=== PATIENT | female | born 1975 | race Caucasian/White ===

== ENCOUNTER 2023-06-28 14:16 | Outpatient (CLI) | payer BC, SELFPAY | END 2023-06-28 14:17 | disposition home or self-care (01) | PROVIDERS: PCP Physician Assistant Medical; Visit Provider Registered Nurse | DX: R10.2 Pelvic and perineal pain (principal) | CPT/HCPCS: 87086; 87186 ==

== ENCOUNTER 2024-01-18 11:21 | Outpatient (CLI) | payer BC, SELFPAY ==
--- NOTE | 2024-01-18 11:30 | MM_ITS ---
Patient: ROSEMARIE GRAY Facility:?[facility] Patient ID:?[id number] Site Patient ID:?[id number]. Site :?[id number] Study:?XRay-Breast Bilateral 3D W/CAD-01/18/2024 11:42:07 AM Ordering Physician:Sri December Final Report: BILATERAL SCREENING MAMMOGRAM WITH COMPUTER-AIDED DETECTION AND TOMOSYNTHESIS TECHNIQUE: CC and MLO views were obtained. These mammographic images have been obtained using full-field digital technique. These mammographic images were interpreted with the benefit of computer-aided detection. Breast Tomosynthesis was used in this interpretation. COMPARISON FILM: 01/16/23, 01/13/22, 12/24/20. FINDINGS: The breasts are heterogeneously dense, which may obscure small masses. IMPRESSION: There is no radiographic evidence for malignancy. ASSESSMENT: BI-RADS Category 1: Negative RECOMMENDATION: Routine screening mammogram in 1 year. A lay language report of this examination will be provided to the patient. Tino Springer M.D. Diagnostic Radiologist [email or web address] DSM/sp R& Transcribed: 6:54 p.m. SP/Dictated by: Tino Springer MD @ 01/21/2024 10:37:00 AM Signed by:?Tino Springer MD @01/21/2024 8:47:28 PM (Electronic Signature)
== END 2024-01-18 11:22 | disposition home or self-care (01) ==
LOC: MAMMO 11:22
PROVIDERS: PCP Physician Assistant Medical; Visit Provider Physician Assistant
DX: Z12.31 Encounter for screening mammogram for malignant neoplasm of breast (principal); R92.2 Inconclusive mammogram
CPT/HCPCS: 77063; 77067

== ENCOUNTER 2025-01-29 08:35 | Outpatient (CLI) | payer BC, SELFPAY | END 2025-01-29 08:36 | disposition home or self-care (01) | LOC: NFLDREF 02-01 13:09 | PROVIDERS: PCP Physician Assistant; Referring Provider Physician Assistant; Visit Provider Physician Assistant | DX: Z13.6 Encounter for screening for cardiovascular disorders (principal); Z13.1 Encounter for screening for diabetes mellitus | CPT/HCPCS: 80061; 82947 ==

== ENCOUNTER 2025-02-10 14:21 | Outpatient (CLI) | payer BC, SELFPAY ==
--- NOTE | 2025-02-10 14:00 | CRLHL7_ITS ---
For Patients: As a result of the Century Cures Act, medical imaging exams and procedure reports are released immediately into your electronic medical record. You may view this report before your referring provider. If you have questions, please contact your health care provider. INDICATION: bilateral screening mammogram, asymptomatic 49Y/F COMPARISON: 01/18/24, 01/16/23 TECHNIQUE: Digital mammogram in CC and MLO projections including computer-aided detection (CAD) and tomosynthesis. BREAST COMPOSITION: The breasts are heterogeneously dense, which may obscure small masses. FINDINGS: No suspicious findings. ASSESSMENT: BI-RADS 1 Negative RECOMMENDATION: Annual screening mammogram. A lay language report of this examination will be provided to the patient. Dictated by: Tino Springer MD @ 02/12/2025 11:24:31 (Electronically Signed)
== END 2025-02-10 14:22 | disposition home or self-care (01) ==
LOC: MAMMO 14:21
PROVIDERS: PCP Physician Assistant; Visit Provider Physician Assistant
DX: Z12.31 Encounter for screening mammogram for malignant neoplasm of breast (principal); R92.333 Mammographic heterogeneous density, bilateral breasts
CPT/HCPCS: 77063; 77067

== ENCOUNTER 2025-03-16 06:32 | Outpatient (CLI) | payer BC, SELFPAY ==
--- NOTE | 2025-03-16 07:53 | P.ANES_ITS ---
Anesthesia Charges Start Date/Time Anesthesia Start Date: 03/16/25 Anesthesia Start Time: 07:27 Stop Date/Time Anesthesia Stop Date: 03/16/25 Anesthesia Stop Time: 07:51 Coding CPT Codes CPT Codes: VENESSA LWR INTST SCR COLSC - 33477 ([id number]) P2 - PATIENT W/MILD SYST DISEASE, QK - TALENT MANAGEMENT SPECIALIST 2-4 CNCRNT ANES PROC, QX - PRODUCTION ADMINISTRATIVE ASSISTANT SVC W/ MD MED DIRECTION
--- NOTE | 2025-03-16 07:53 | W.ANESCHARGE ---
Anesthesia Charges Start Date/Time Anesthesia Start Date: 03/16/25 Anesthesia Start Time: 07:27 Stop Date/Time Anesthesia Stop Date: 03/16/25 Anesthesia Stop Time: 07:51 Coding CPT Codes CPT Codes: VENESSA LWR INTST SCR COLSC - 79498 ([id number]) P2 - PATIENT W/MILD SYST DISEASE, QK - PASTEURIZER 2-4 CNCRNT ANES PROC, QX - DEVELOPMENT SPECIALIST SVC W/ MD MED DIRECTION
--- NOTE | 2025-03-16 07:54 | P.ANES_ITS ---
Anesthesia Charges Start Date/Time Anesthesia Start Date: 03/16/25 Anesthesia Start Time: 07:27 Stop Date/Time Anesthesia Stop Date: 03/16/25 Anesthesia Stop Time: 07:51 Coding CPT Codes CPT Codes: VENESSA LWR INTST SCR COLSC - 08831 ([id number]) QK - SALES REPRESENTATIVE SUPERVISOR 2-4 CNCRNT VENESSA PROC, QX - SUPPORT DIRECTOR SVC W/ MD MED DIRECTION, P2 - PATIENT W/MILD SYST DISEASE
--- NOTE | 2025-03-16 07:54 | W.ANESCHARGE ---
Anesthesia Charges Start Date/Time Anesthesia Start Date: 03/16/25 Anesthesia Start Time: 07:27 Stop Date/Time Anesthesia Stop Date: 03/16/25 Anesthesia Stop Time: 07:51 Coding CPT Codes CPT Codes: VENESSA LWR INTST SCR COLSC - [id number] ([id number]) QK - TETRYL DISSOLVER OPERATOR 2-4 CNCRNT VENESSA PROC, QX - IGNITER ASSEMBLER SVC W/ MD MED DIRECTION, P2 - PATIENT W/MILD SYST DISEASE
== END 2025-03-16 06:33 | disposition home or self-care (01) ==
LOC: OP CLINIC 06:33
PROVIDERS: PCP Physician Assistant; Visit Provider Surgery
DX: Z12.11 Encounter for screening for malignant neoplasm of colon (principal)
CPT/HCPCS: 00812; 45378; J2704